=== PATIENT | male | born 1935 | race Caucasian/White ===

== ENCOUNTER 2016-11-04 08:48 | Day surgery (SDC) | payer MEDICARE ==
[2016-10-29 12:31] LABS: BASOPHILS 0.3 %; BASOPHILS ABSOLUTE 0.03 10/3/uL (0.0-0.16); EOSINOPHILS 2.3 %; EOSINOPHILS ABSOLUTE 0.21 10/3/uL (0.0-0.53); HEMATOCRIT 42.2 % (40.0-51.0); HEMOGLOBIN 14.1 g/dL (13.6-17.8); IMMATURE GRANULOCYTES 0.2 %; IMMATURE GRANULOCYTES ABSOLUTE 0.02 10/3/uL (0.0-0.11); LYMPHOCYTES ABSOLUTE 2.78 10/3/uL (0.67-4.30); MEAN CORPUS HGB CONC 33.4 g/dL (32.0-36.0); MEAN CORPUSCULAR HEMOGLOB 30.8 pg (26.0-34.0); MEAN CORPUSCULAR VOLUME 92.1 fL (80-100); MEAN PLATELET VOLUME 10.4 fL (9.2-13.0); MONOCYTES 8.2 %; MONOCYTES ABSOLUTE 0.74 10/3/uL (0.21-1.20); NEUTROPHILS ABSOLUTE 5.19 10/3/uL (2.02-8.40); PLATELET COUNT 316 10/3/uL (150-400); RBC DISTRIBUTION WIDTH 13.7 % (12.0-16.0); RED CELL COUNT 4.58 10/6/uL (4.7-6.1)
[2016-10-29 12:32] LABS: MANUAL DIFF NO %
[2016-10-29 12:44] LABS: BUN (BLOOD UREA NITROGEN) 10 MG/DL (6-23); CALCIUM, SERUM 8.6 MG/DL (8.5-10.4); CHLORIDE, SERUM 106 MMOL/L (96-112); CO2 (CARBON DIOXIDE) 31 MMOL/L (24-34); GFR AFRICAN AMERICAN 102 ML/MIN (>=60); GFR NON AFRICAN AMERICAN 88 ML/MIN (>=60); GLUCOSE, SERUM 94 MG/DL (60-99); POTASSIUM, SERUM 4.5 MMOL/L (3.5-5.3); SODIUM, SERUM 143 MMOL/L (135-148)
--- NOTE | ~2016-11-04 | OP ---
[address] [facility] [id number] [place]. [address] NAME: AIDEECECILIO IZAGUIRRE EUGENE : 33 STATUS : REG [facility] PAT#: [id number] AGE: 81 ADM/REG DATE : 11/04/16 MR#: [id number] REPORT SERV DATE: 11/04/16 DICTATED BY: MASOUD CAMPBELL DATE: 11/04/16 REPORT STATUS : Draft TRANSCRIBED BY: MODL DATE: 11/04/16 DATE OF PROCEDURE: 11/04/2016 PREOPERATIVE DIAGNOSES: Nodular prostate and incomplete bladder emptying. POSTOPERATIVE DIAGNOSES: Nodular prostate and incomplete bladder emptying. PROCEDURE: Transrectal ultrasound needle biopsy of the prostate. SURGEON: Masoud Campbell M.D. ANESTHESIA: General. BLOOD LOSS: None. DRAINS: None. INDICATION: [id number] with incomplete bladder emptying and a severely nodular prostate gland. He refused office needle biopsy. TECHNIQUE: The patient was identified, brought to the operating room, and administered general anesthetic agent by the Anesthesia Service. He was laid in lateral decubitus position. Digital rectal exam was repeated. The patient had a relatively small, but very firm, diffusely hard nodular prostate. I then inserted a 6.5 megahertz transrectal ultrasound probe. The prostate was scanned from apex to base in both longitude and transverse modes. Dimensions of gland were taken, and calculated volume was 26 mL. The patient was noted to have heavy calcifications, especially in the left lobe of the prostate and all along the interface between the transition zone and the peripheral zone. Additionally, a lip of median lobe tissue was seen coming from the anterior portion of the prostate. I then used the ultrasound to guide my needle. A total of six biopsies from the right side and six from the left side were taken. I then removed the probe. The procedure was terminated. The patient was awakened and taken to the recovery unit in stable and satisfactory condition. PF/MODL Masoud Campbell M.D. / [id number] [facility] [id number] [facility] [place]. [address] NAME: CECILIO HOSKINS : 33 STATUS : REG [facility] PAT#: [id number] AGE: 81 ADM/REG DATE : 11/04/16 MR#: [id number] REPORT SERV DATE: 11/04/16 DICTATED BY: MASOUD CAMPBELL DATE: 11/04/16 REPORT STATUS : Draft TRANSCRIBED BY: ALLENL DATE: 11/04/16 CC: Hillary Yee
[~2016-11-04 08:48] MED LIST: ALLEGRA180 PO; ARICEPT5 PO; ASAB PO; FISH-EPA1000 MG PO; FLOMAX4 PO; LORTAB 5 PO; PRILO PO; VITAMIN D1000 UNI1 PO; XALAT OPH; XPECT400 MG PO
== END 2016-11-04 19:16 | disposition home or self-care (01) ==
LOC: SDC 08:48
PROVIDERS: Urology
PROC: 0VB00ZX Excision of Prostate, Open Approach, Diagnostic (ICD-10-PCS; 2016-11-04)
PROC: BV49ZZZ Ultrasonography of Prostate and Seminal Vesicles (ICD-10-PCS; principal; 2016-11-04 10:45)
DX: C61 Malignant neoplasm of prostate (principal); N41.1 Chronic prostatitis; M19.90 Unspecified osteoarthritis, unspecified site; K21.9 Gastro-esophageal reflux disease without esophagitis; Z87.891 Personal history of nicotine dependence; Z98.41 Cataract extraction status, right eye; Z98.42 Cataract extraction status, left eye; Z96.1 Presence of intraocular lens; Z98.890 Other specified postprocedural states
CPT/HCPCS: 76872; 76942; 80048; 85025; 88305; 88342; 88344; 93005